=== PATIENT | male | born 1965 | race Caucasian/White ===

== ENCOUNTER 2021-09-09 01:05 | Inpatient (IN) | payer OTHER ==
[2021-09-09] MEDS ORDERED: HYDROcodone/Acetaminophen 5/325 mg Tablet PO PRN (01:25)
[2021-09-09] MEDS ORDERED: Acetaminophen 325 MG TAB PO PRN (01:25)
[2021-09-09] MEDS ORDERED: Zolpidem Tartrate 5 MG TAB PO PRN (01:25)
[2021-09-09] MEDS ORDERED: Guaifenesin DM 100-10/5 ML UDCUP PO PRN (01:25)
[2021-09-09] MEDS ORDERED: Ondansetron PF 4 MG/2 ML Vial IVP PRN (01:25)
[2021-09-09] MEDS ORDERED: Senokot S 8.6-50 MG TAB PO PRN (01:25)
[2021-09-09] MEDS ORDERED: Sodium Chloride 0.9% 1,000 ML IV SCH (01:30)
[2021-09-09] MEDS ORDERED: REMDESIVIR REQUEST IVPB PRN (01:34)
[2021-09-09] MEDS: guaiFENesin/Codeine Phosphate 100 mg/10 mg 5 ml UD Cup PO SCH ×4 (02:51→20:08)
[2021-09-09 05:07] LABS: ALT (SGPT) 31 U/L (8-55); AST (SGOT) 58 U/L (5-34); Albumin 3.9 g/dL (3.5-5.0); Alkaline Phosphatase 53 U/L (40-110); Anion Gap 16 mmol/L (10-20); BUN (Urea Nitrogen) 21 mg/dL (8.4-25.7); Bilirubin, Total 1.1 mg/dL (0.2-1.2); CRP (Inflammatory) 9.95 mg/dL (= or < 0.5); Calc. Creatinine Clearance 0 mL/min (70-130); Calcium 9.1 mg/dL (7.8-10.44); Carbon Dioxide 27 mmol/L (22-29); Chloride 98 mmol/L (98-107); Glucose 135 mg/dL (70-105); Potassium 3.9 mmol/L (3.5-5.1); Protein, Total 6.9 g/dL (6.0-8.3); Sodium 137 mmol/L (136-145)
[2021-09-09 05:36] LABS: #Monocytes 0.3 10x3/uL (0.0-1.1); #Neutrophils 4.2 10x3/uL (1.5-8.4); %Basophils 0.2 % (0.0-2.0); %Monocytes 5.8 % (0.0-10.0); Hemoglobin 14.5 g/dL (13.5-17.5); Mean Corpuscular HGB CONC 35.1 g/dL (32.0-36.0); Mean Corpuscular Hemoglobin 31.3 pg (27.0-33.0); Mean Corpuscular Volume 89.2 fl (81.2-95.1); Mean Platelet Volume 10.6 fl (7.4-10.4); Platelet Count 138 10x3/uL (150-450); RBC Distribution Width 12.2 % (11.5-14.5); Red Blood Cell (RBC) Count 4.63 10x6/uL (4.32-5.72); White Blood Cell (WBC) Count 5.2 10x3/uL (3.5-10.5)
[2021-09-09] MEDS: Ascorbic Acid 500 mg Chewable Tablet PO SCH (08:16)
[2021-09-09] MEDS: Zinc Gluconate 50 MG TAB PO SCH (08:16)
[2021-09-09] MEDS: Benzonatate 100 MG CAP PO SCH ×3 (08:16→20:08)
[2021-09-09] MEDS: Enoxaparin Sodium 40 MG/0.4 ML SYRINGE SC SCH (08:17)
[2021-09-09] MEDS: Ezetimibe 10 MG TAB PO SCH (08:17)
[2021-09-09] MEDS: Cholecalciferol 1,000 UNITS (25 MCG) TAB PO SCH (08:17)
[2021-09-09] MEDS ORDERED: Aspirin 81 mg Enteric Coated Tablet PO SCH (09:00)
[2021-09-09] MEDS ORDERED: REMDESIVIR 200 MG in Sodium Chloride 0.9% 250 ML 210 ML IV SCH (09:00)
[2021-09-09] MEDS ORDERED: Benzonatate 100 MG CAP PO PRN (10:26)
[2021-09-09] MEDS: traZODone HCl 50 MG TAB PO PRN (20:08)
[2021-09-09] MEDS: Dexamethasone 4 mg/ml Vial SLOW IVP SCH (20:08)
[2021-09-09] MEDS: Calcium Carbonate 500 MG ChewTAB PO PRN (20:08)
[2021-09-09] MEDS: Atorvastatin Calcium 20 MG TAB PO SCH (20:08)
[2021-09-09 20:32] LABS: Bilirubin Neg (Negative); Blood, Urine 25 (Negative); Clarity Clear (Clear); Glucose, Urine (Dipstick) Normal (Negative); Ketone, Urine Negative (Negative); Leukocyte Negative (Negative); Nitrite Negative (Negative); Protein, Urine (Dipstick) 100 mg/dl (Neg-Trace)
[2021-09-09 20:40] LABS: Bacteria/HPF Rare-Few HPF (None Seen); Mucous/LPF 1+ LPF (<2+); RBC/HPF 0-3 HPF (0-3); Squamous Epithelial 0-3 HPF (0-3); WBC/HPF 0-3 HPF (0-3)
[2021-09-10] MEDS: guaiFENesin/Codeine Phosphate 100 mg/10 mg 5 ml UD Cup PO SCH (02:22)
[2021-09-10 04:59] LABS: #Monocytes 0.5 10x3/uL (0.0-1.1); #Neutrophils 5.6 10x3/uL (1.5-8.4); %Basophils 0.1 % (0.0-2.0); %Monocytes 7.1 % (0.0-10.0); Hemoglobin 13.5 g/dL (13.5-17.5); Mean Corpuscular HGB CONC 34.1 g/dL (32.0-36.0); Mean Platelet Volume 10.6 fl (7.4-10.4); Platelet Count 176 10x3/uL (150-450); RBC Distribution Width 11.9 % (11.5-14.5); Red Blood Cell (RBC) Count 4.35 10x6/uL (4.32-5.72); White Blood Cell (WBC) Count 7.2 10x3/uL (3.5-10.5)
[2021-09-10 05:16] LABS: ALT (SGPT) 37 U/L (8-55); AST (SGOT) 72 U/L (5-34); Albumin 3.6 g/dL (3.5-5.0); Alkaline Phosphatase 52 U/L (40-110); Anion Gap 14 mmol/L (10-20); BUN (Urea Nitrogen) 22 mg/dL (8.4-25.7); Bilirubin, Total 0.9 mg/dL (0.2-1.2); Calc. Creatinine Clearance 0 mL/min (70-130); Calcium 9.1 mg/dL (7.8-10.44); Carbon Dioxide 29 mmol/L (22-29); Chloride 101 mmol/L (98-107); Globulin 2.8 g/dL (2.4-3.5); Glucose 174 mg/dL (70-105); Phosphorus 4.6 mg/dL (2.3-4.7); Potassium 4.5 mmol/L (3.5-5.1); Protein, Total 6.4 g/dL (6.0-8.3); Sodium 139 mmol/L (136-145)
[2021-09-10] MEDS: Ezetimibe 10 MG TAB PO SCH (08:09)
[2021-09-10] MEDS: Cholecalciferol 1,000 UNITS (25 MCG) TAB PO SCH (08:10)
[2021-09-10] MEDS: Ascorbic Acid 500 mg Chewable Tablet PO SCH (08:10)
[2021-09-10] MEDS: Enoxaparin Sodium 40 MG/0.4 ML SYRINGE SC SCH (08:10)
[2021-09-10] MEDS: Zinc Gluconate 50 MG TAB PO SCH (08:10)
[2021-09-10] MEDS: Calcium Carbonate 500 MG ChewTAB PO PRN ×3 (08:10→21:36)
[2021-09-10] MEDS: Benzonatate 100 MG CAP PO SCH ×3 (08:10→20:26)
[2021-09-10] MEDS: REMDESIVIR 100 MG in Sodium Chloride 0.9% 250 ML 230 ML IV SCH (08:10)
[2021-09-10] MEDS: guaiFENesin/Codeine Phosphate 100 mg/10 mg 5 ml UD Cup PO PRN ×3 (08:11→21:37)
[2021-09-10] MEDS: Atorvastatin Calcium 20 MG TAB PO SCH (20:25)
[2021-09-10] MEDS: Dexamethasone 4 mg/ml Vial SLOW IVP SCH (20:26)
[2021-09-10] MEDS: traZODone HCl 50 MG TAB PO PRN (21:36)
[2021-09-11 04:39] LABS: #Monocytes 0.7 10x3/uL (0.0-1.1); #Neutrophils 7.1 10x3/uL (1.5-8.4); %Basophils 0.1 % (0.0-2.0); %Monocytes 7.9 % (0.0-10.0); %Neutrophils 77.9 % (40.0-75.0); Hemoglobin 13.5 g/dL (13.5-17.5); Mean Corpuscular HGB CONC 33.8 g/dL (32.0-36.0); Mean Corpuscular Hemoglobin 30.8 pg (27.0-33.0); Mean Corpuscular Volume 91.1 fl (81.2-95.1); Mean Platelet Volume 10.4 fl (7.4-10.4); Platelet Count 212 10x3/uL (150-450); RBC Distribution Width 12.1 % (11.5-14.5); Red Blood Cell (RBC) Count 4.39 10x6/uL (4.32-5.72); White Blood Cell (WBC) Count 9.2 10x3/uL (3.5-10.5)
[2021-09-11 04:56] LABS: ALT (SGPT) 45 U/L (8-55); AST (SGOT) 68 U/L (5-34); Albumin 3.4 g/dL (3.5-5.0); Alkaline Phosphatase 57 U/L (40-110); Anion Gap 14 mmol/L (10-20); BUN (Urea Nitrogen) 23 mg/dL (8.4-25.7); Bilirubin, Total 0.7 mg/dL (0.2-1.2); Calc. Creatinine Clearance 0 mL/min (70-130); Carbon Dioxide 30 mmol/L (22-29); Chloride 101 mmol/L (98-107); Globulin 2.9 g/dL (2.4-3.5); Glucose 149 mg/dL (70-105); Potassium 4.9 mmol/L (3.5-5.1); Protein, Total 6.3 g/dL (6.0-8.3); Sodium 140 mmol/L (136-145)
[2021-09-11] MEDS: Ezetimibe 10 MG TAB PO SCH (10:51)
[2021-09-11] MEDS: Cholecalciferol 1,000 UNITS (25 MCG) TAB PO SCH (10:51)
[2021-09-11] MEDS: Benzonatate 100 MG CAP PO SCH ×3 (10:51→21:22)
[2021-09-11] MEDS: Ascorbic Acid 500 mg Chewable Tablet PO SCH (10:51)
[2021-09-11] MEDS: Enoxaparin Sodium 40 MG/0.4 ML SYRINGE SC SCH (10:52)
[2021-09-11] MEDS: REMDESIVIR 100 MG in Sodium Chloride 0.9% 250 ML 230 ML IV SCH (10:52)
[2021-09-11] MEDS: Zinc Gluconate 50 MG TAB PO SCH (10:53)
[2021-09-11] MEDS: Calcium Carbonate 500 MG ChewTAB PO PRN ×2 (11:10→21:22)
[2021-09-11] MEDS: guaiFENesin/Codeine Phosphate 100 mg/10 mg 5 ml UD Cup PO PRN ×2 (11:11→21:23)
[2021-09-11] MEDS ORDERED: Fluticasone Propionate Nasal Spray 16 gm Bottle NASAL SCH (18:45)
[2021-09-11] MEDS: Dexamethasone 4 mg/ml Vial SLOW IVP SCH (21:22)
[2021-09-11] MEDS: Atorvastatin Calcium 20 MG TAB PO SCH (21:22)
[2021-09-11] MEDS: traZODone HCl 50 MG TAB PO PRN (21:22)
[2021-09-11] MEDS: guaiFENesin ER 600 MG TAB PO SCH (21:22)
[2021-09-12] MEDS ORDERED: Sodium Chloride 0.9% 250 ML 250 ML ONE (08:31)
[2021-09-12] MEDS: Enoxaparin Sodium 40 MG/0.4 ML SYRINGE SC SCH (08:51)
[2021-09-12] MEDS: guaiFENesin ER 600 MG TAB PO SCH ×2 (08:51→20:47)
[2021-09-12] MEDS: Benzonatate 100 MG CAP PO SCH ×3 (08:51→20:46)
[2021-09-12] MEDS: Cholecalciferol 1,000 UNITS (25 MCG) TAB PO SCH (08:52)
[2021-09-12] MEDS: Zinc Gluconate 50 MG TAB PO SCH (08:52)
[2021-09-12] MEDS: Ezetimibe 10 MG TAB PO SCH (08:52)
[2021-09-12] MEDS: Ascorbic Acid 500 mg Chewable Tablet PO SCH (08:52)
[2021-09-12] MEDS: REMDESIVIR 100 MG in Sodium Chloride 0.9% 250 ML 230 ML IV SCH (08:53)
[2021-09-12] MEDS ORDERED: Polyethylene Glycol 3350 17 GM Packet PO SCH (12:00)
[2021-09-12 13:15] LABS: Hemoglobin A1c 5.4 % (4.0-6.0)
[2021-09-12] MEDS: Fluticasone Propionate Nasal Spray 16 gm Bottle NASAL SCH (14:05)
[2021-09-12] MEDS: Atorvastatin Calcium 20 MG TAB PO SCH (20:46)
[2021-09-12] MEDS: traZODone HCl 50 MG TAB PO PRN (20:47)
[2021-09-12] MEDS: Calcium Carbonate 500 MG ChewTAB PO PRN (20:47)
[2021-09-12] MEDS: Dexamethasone 4 mg/ml Vial SLOW IVP SCH (20:47)
[2021-09-12] MEDS: Senokot S 8.6-50 MG TAB PO SCH (20:47)
[2021-09-12] MEDS: guaiFENesin/Codeine Phosphate 100 mg/10 mg 5 ml UD Cup PO PRN (20:50)
[2021-09-13 04:44] LABS: Anion Gap 13 mmol/L (10-20); BUN (Urea Nitrogen) 18 mg/dL (8.4-25.7); Calc. Creatinine Clearance 0 mL/min (70-130); Carbon Dioxide 31 mmol/L (22-29); Chloride 101 mmol/L (98-107); Glucose 174 mg/dL (70-105); Magnesium 2.1 mg/dL (1.6-2.6); Phosphorus 3.8 mg/dL (2.3-4.7); Potassium 4.7 mmol/L (3.5-5.1); Sodium 140 mmol/L (136-145)
[2021-09-13 05:07] LABS: #Monocytes 0.5 10x3/uL (0.0-1.1); #Neutrophils 8.1 10x3/uL (1.5-8.4); %Basophils 0.4 % (0.0-2.0); %Lymphocytes 10.2 % (18.0-47.0); %Monocytes 5.4 % (0.0-10.0); %Neutrophils 81.5 % (40.0-75.0); Hemoglobin 13.6 g/dL (13.5-17.5); Mean Corpuscular HGB CONC 34.2 g/dL (32.0-36.0); Mean Corpuscular Hemoglobin 31.3 pg (27.0-33.0); Mean Corpuscular Volume 91.7 fl (81.2-95.1); Mean Platelet Volume 9.9 fl (7.4-10.4); Platelet Count 248 10x3/uL (150-450); RBC Distribution Width 12.2 % (11.5-14.5); Red Blood Cell (RBC) Count 4.34 10x6/uL (4.32-5.72)
[2021-09-13] MEDS: Cholecalciferol 1,000 UNITS (25 MCG) TAB PO SCH (08:29)
[2021-09-13] MEDS: guaiFENesin ER 600 MG TAB PO SCH ×2 (08:29→20:09)
[2021-09-13] MEDS: Polyethylene Glycol 3350 17 GM Packet PO SCH (08:29)
[2021-09-13] MEDS: Ezetimibe 10 MG TAB PO SCH (08:29)
[2021-09-13] MEDS: Ascorbic Acid 500 mg Chewable Tablet PO SCH (08:29)
[2021-09-13] MEDS: Senokot S 8.6-50 MG TAB PO SCH ×2 (08:29→20:24)
[2021-09-13] MEDS: Dexamethasone 4 mg/ml Vial SLOW IVP SCH ×2 (08:29→20:09)
[2021-09-13] MEDS: Benzonatate 100 MG CAP PO SCH ×3 (08:29→20:09)
[2021-09-13] MEDS: Zinc Gluconate 50 MG TAB PO SCH (08:30)
[2021-09-13] MEDS: REMDESIVIR 100 MG in Sodium Chloride 0.9% 250 ML 230 ML IV SCH (08:30)
[2021-09-13] MEDS: Fluticasone Propionate Nasal Spray 16 gm Bottle NASAL SCH (08:30)
[2021-09-13] MEDS: Enoxaparin Sodium 40 MG/0.4 ML SYRINGE SC SCH (08:30)
[2021-09-13] MEDS: Atorvastatin Calcium 20 MG TAB PO SCH (20:09)
[2021-09-13] MEDS: traZODone HCl 50 MG TAB PO PRN (20:23)
[2021-09-14] MEDS: Enoxaparin Sodium 40 MG/0.4 ML SYRINGE SC SCH (07:45)
[2021-09-14] MEDS: Polyethylene Glycol 3350 17 GM Packet PO SCH (07:45)
[2021-09-14] MEDS: guaiFENesin ER 600 MG TAB PO SCH ×2 (07:45→20:33)
[2021-09-14] MEDS: Ezetimibe 10 MG TAB PO SCH (07:45)
[2021-09-14] MEDS: Benzonatate 100 MG CAP PO SCH ×3 (07:45→20:34)
[2021-09-14] MEDS: Dexamethasone 4 mg/ml Vial SLOW IVP SCH ×2 (07:45→20:34)
[2021-09-14] MEDS: Cholecalciferol 1,000 UNITS (25 MCG) TAB PO SCH (07:46)
[2021-09-14] MEDS: Fluticasone Propionate Nasal Spray 16 gm Bottle NASAL SCH (07:46)
[2021-09-14] MEDS: Zinc Gluconate 50 MG TAB PO SCH (07:46)
[2021-09-14] MEDS: Senokot S 8.6-50 MG TAB PO SCH ×2 (07:46→20:32)
[2021-09-14] MEDS: Ascorbic Acid 500 mg Chewable Tablet PO SCH (07:46)
[2021-09-14] MEDS: Ventolin HFA Inhaler 60 PUFF INHALER INH SCH ×3 (15:23→20:34)
[2021-09-14] MEDS: Calcium Carbonate 500 MG ChewTAB PO PRN (20:32)
[2021-09-14] MEDS: Atorvastatin Calcium 20 MG TAB PO SCH (20:33)
[2021-09-14] MEDS: traZODone HCl 50 MG TAB PO PRN (20:33)
[2021-09-14] MEDS: Mometasone 100 MCG/PUFF (1 INHALER) INH SCH (20:33)
[2021-09-15 06:27] LABS: Hemoglobin 14.2 g/dL (13.5-17.5); Mean Corpuscular HGB CONC 34.7 g/dL (32.0-36.0); Mean Corpuscular Hemoglobin 31.5 pg (27.0-33.0); Mean Corpuscular Volume 90.7 fl (81.2-95.1); Mean Platelet Volume 9.7 fl (7.4-10.4); Platelet Count 380 10x3/uL (150-450); RBC Distribution Width 12.4 % (11.5-14.5); Red Blood Cell (RBC) Count 4.51 10x6/uL (4.32-5.72); White Blood Cell (WBC) Count 14.5 10x3/uL (3.5-10.5)
[2021-09-15 06:46] LABS: Anion Gap 14 mmol/L (10-20); BUN (Urea Nitrogen) 21 mg/dL (8.4-25.7); Calc. Creatinine Clearance 141 mL/min (70-130); Calcium 9.2 mg/dL (7.8-10.44); Carbon Dioxide 28 mmol/L (22-29); Chloride 102 mmol/L (98-107); Glucose 222 mg/dL (70-105); Magnesium 2.1 mg/dL (1.6-2.6); Phosphorus 3.9 mg/dL (2.3-4.7); Potassium 4.5 mmol/L (3.5-5.1); Sodium 139 mmol/L (136-145)
[2021-09-15 07:00] LABS: MDiff Complete? YES
[2021-09-15 07:02] LABS: Band 2 % (5-11); Lymphocytes 8 % (21-51); Metamyelocyte 1 % (0-0); Monocytes 5 % (0-10); Myelocyte 2 % (0-0); Neutrophil 80 % (42-75); Reactive Lymphocytes 2 % (0-10)
[2021-09-15 07:04] LABS: Platelet Morphology Comment Appears Adequate; RBC Morphology Normal
[2021-09-15] MEDS: Mometasone 100 MCG/PUFF (1 INHALER) INH SCH ×2 (07:20→20:32)
[2021-09-15] MEDS: Ventolin HFA Inhaler 60 PUFF INHALER INH SCH ×4 (07:20→20:32)
[2021-09-15] MEDS: Ascorbic Acid 500 mg Chewable Tablet PO SCH (08:16)
[2021-09-15] MEDS: Cholecalciferol 1,000 UNITS (25 MCG) TAB PO SCH (08:17)
[2021-09-15] MEDS: Zinc Gluconate 50 MG TAB PO SCH (08:17)
[2021-09-15] MEDS: Enoxaparin Sodium 40 MG/0.4 ML SYRINGE SC SCH (08:17)
[2021-09-15] MEDS: Ezetimibe 10 MG TAB PO SCH (08:17)
[2021-09-15] MEDS: guaiFENesin ER 600 MG TAB PO SCH ×2 (08:17→20:46)
[2021-09-15] MEDS: Dexamethasone 4 mg/ml Vial SLOW IVP SCH ×2 (08:18→20:44)
[2021-09-15] MEDS: Polyethylene Glycol 3350 17 GM Packet PO SCH (08:20)
[2021-09-15] MEDS: Benzonatate 100 MG CAP PO SCH ×3 (08:20→20:46)
[2021-09-15] MEDS: Fluticasone Propionate Nasal Spray 16 gm Bottle NASAL SCH (08:20)
[2021-09-15] MEDS: Senokot S 8.6-50 MG TAB PO SCH ×2 (08:40→21:17)
[2021-09-15] MEDS ORDERED: Dextrose 5% in Water 1,000 ML IV PRN (08:49)
[2021-09-15] MEDS ORDERED: Dextrose 50% Abboject 50 ML SYRINGE SLOW IVP PRN (08:49)
[2021-09-15] MEDS: HumaLOG 300 UNITS/3 ML VIAL SC PRN ×3 (12:50→22:48)
[2021-09-15] MEDS: Atorvastatin Calcium 20 MG TAB PO SCH (20:46)
[2021-09-15] MEDS: traZODone HCl 50 MG TAB PO PRN (20:46)
[2021-09-16 04:47] LABS: Hemoglobin 14.1 g/dL (13.5-17.5); Mean Corpuscular HGB CONC 33.4 g/dL (32.0-36.0); Mean Corpuscular Hemoglobin 30.9 pg (27.0-33.0); Mean Corpuscular Volume 92.5 fl (81.2-95.1); Mean Platelet Volume 9.7 fl (7.4-10.4); Platelet Count 422 10x3/uL (150-450); RBC Distribution Width 12.4 % (11.5-14.5); Red Blood Cell (RBC) Count 4.56 10x6/uL (4.32-5.72); White Blood Cell (WBC) Count 16.7 10x3/uL (3.5-10.5)
[2021-09-16 05:09] LABS: Anion Gap 13 mmol/L (10-20); BUN (Urea Nitrogen) 21 mg/dL (8.4-25.7); Calc. Creatinine Clearance 148 mL/min (70-130); Calcium 9.1 mg/dL (7.8-10.44); Carbon Dioxide 27 mmol/L (22-29); Chloride 102 mmol/L (98-107); Glucose 194 mg/dL (70-105); Magnesium 2.1 mg/dL (1.6-2.6); Phosphorus 4.1 mg/dL (2.3-4.7); Potassium 4.5 mmol/L (3.5-5.1); Sodium 137 mmol/L (136-145)
[2021-09-16 06:18] LABS: MDiff Complete? YES
[2021-09-16 06:19] LABS: Platelet Morphology Comment Appears Adequate; Polychromasia SLIGHT = 2-3 cells (100X) (0-2/hpf)
[2021-09-16 06:22] LABS: Band 3 % (5-11); Lymphocytes 7 % (21-51); Monocytes 7 % (0-10); Neutrophil 83 % (42-75)
[2021-09-16] MEDS: Mometasone 100 MCG/PUFF (1 INHALER) INH SCH ×2 (07:00→21:00)
[2021-09-16] MEDS: Ventolin HFA Inhaler 60 PUFF INHALER INH SCH ×4 (07:01→21:00)
[2021-09-16] MEDS: Ascorbic Acid 500 mg Chewable Tablet PO SCH (07:49)
[2021-09-16] MEDS: guaiFENesin ER 600 MG TAB PO SCH ×2 (07:49→21:38)
[2021-09-16] MEDS: Senokot S 8.6-50 MG TAB PO SCH ×2 (07:49→21:46)
[2021-09-16] MEDS: Benzonatate 100 MG CAP PO SCH ×3 (07:49→21:38)
[2021-09-16] MEDS: Zinc Gluconate 50 MG TAB PO SCH (07:49)
[2021-09-16] MEDS: Enoxaparin Sodium 40 MG/0.4 ML SYRINGE SC SCH (07:49)
[2021-09-16] MEDS: Fluticasone Propionate Nasal Spray 16 gm Bottle NASAL SCH (07:49)
[2021-09-16] MEDS: Polyethylene Glycol 3350 17 GM Packet PO SCH (07:49)
[2021-09-16] MEDS: Ezetimibe 10 MG TAB PO SCH (07:50)
[2021-09-16] MEDS: Cholecalciferol 1,000 UNITS (25 MCG) TAB PO SCH (07:50)
[2021-09-16] MEDS: Dexamethasone 4 mg/ml Vial SLOW IVP SCH ×2 (07:50→21:38)
[2021-09-16] MEDS ORDERED: NPH, Human Insulin Isophane 300 UNIT/3 ML VIAL SC SCH (12:00)
[2021-09-16] MEDS: HumaLOG 300 UNITS/3 ML VIAL SC PRN ×2 (17:21→21:37)
[2021-09-16] MEDS: Atorvastatin Calcium 20 MG TAB PO SCH (21:38)
[2021-09-16] MEDS: Lantus 1000 UNITS/10 ML VIAL SC SCH (21:42)
[2021-09-16] MEDS: traZODone HCl 50 MG TAB PO PRN (21:48)
[2021-09-17 05:05] LABS: Anion Gap 14 mmol/L (10-20); BUN (Urea Nitrogen) 23 mg/dL (8.4-25.7); Calc. Creatinine Clearance 128 mL/min (70-130); Carbon Dioxide 27 mmol/L (22-29); Chloride 100 mmol/L (98-107); Glucose 183 mg/dL (70-105); Magnesium 2.1 mg/dL (1.6-2.6); Phosphorus 4.4 mg/dL (2.3-4.7); Potassium 4.7 mmol/L (3.5-5.1); Sodium 136 mmol/L (136-145)
[2021-09-17 05:15] LABS: Hemoglobin 14.1 g/dL (13.5-17.5); Mean Corpuscular HGB CONC 34.2 g/dL (32.0-36.0); Mean Corpuscular Hemoglobin 31.3 pg (27.0-33.0); Mean Corpuscular Volume 91.4 fl (81.2-95.1); Mean Platelet Volume 9.6 fl (7.4-10.4); Platelet Count 394 10x3/uL (150-450); RBC Distribution Width 12.6 % (11.5-14.5); Red Blood Cell (RBC) Count 4.51 10x6/uL (4.32-5.72)
[2021-09-17] MEDS: HumaLOG 300 UNITS/3 ML VIAL SC PRN ×3 (05:30→20:51)
[2021-09-17] MEDS ORDERED: Sodium Chloride 0.9% 1,000 ML IV SCH (06:00)
[2021-09-17 07:04] LABS: MDiff Complete? YES; Platelet Morphology Comment Appears Adequate; RBC Morphology Normal
[2021-09-17 07:06] LABS: Band 2 % (5-11); Lymphocytes 7 % (21-51); Monocytes 8 % (0-10); Neutrophil 83 % (42-75)
[2021-09-17] MEDS: Ventolin HFA Inhaler 60 PUFF INHALER INH SCH ×4 (08:20→19:39)
[2021-09-17] MEDS: Enoxaparin Sodium 40 MG/0.4 ML SYRINGE SC SCH (08:53)
[2021-09-17] MEDS: Ezetimibe 10 MG TAB PO SCH (08:54)
[2021-09-17] MEDS: Dexamethasone 4 mg/ml Vial SLOW IVP SCH ×2 (08:54→20:50)
[2021-09-17] MEDS: Ascorbic Acid 500 mg Chewable Tablet PO SCH (08:54)
[2021-09-17] MEDS: Aspirin Chewable 81 MG TAB PO SCH (08:54)
[2021-09-17] MEDS: Zinc Gluconate 50 MG TAB PO SCH (08:55)
[2021-09-17] MEDS: Benzonatate 100 MG CAP PO SCH ×3 (08:55→20:50)
[2021-09-17] MEDS: Fluticasone Propionate Nasal Spray 16 gm Bottle NASAL SCH (08:55)
[2021-09-17] MEDS: guaiFENesin ER 600 MG TAB PO SCH ×2 (08:55→20:49)
[2021-09-17] MEDS: Simvastatin 10 MG TAB PO SCH (08:55)
[2021-09-17] MEDS: Cholecalciferol 1,000 UNITS (25 MCG) TAB PO SCH (08:55)
[2021-09-17] MEDS: Senokot S 8.6-50 MG TAB PO SCH ×2 (09:18→20:49)
[2021-09-17] MEDS: Polyethylene Glycol 3350 17 GM Packet PO SCH (09:18)
[2021-09-17] MEDS: Mometasone 100 MCG/PUFF (1 INHALER) INH SCH ×2 (10:45→19:39)
[2021-09-17] MEDS: guaiFENesin/Codeine Phosphate 100 mg/10 mg 5 ml UD Cup PO PRN (17:35)
[2021-09-17] MEDS: traZODone HCl 50 MG TAB PO SCH (20:49)
[2021-09-17] MEDS: Atorvastatin Calcium 20 MG TAB PO SCH (20:49)
[2021-09-17] MEDS: Lantus 1000 UNITS/10 ML VIAL SC SCH (20:50)
[2021-09-17] MEDS ORDERED: Azithromycin 200 MG/5 ML Oral Suspension PO SCH (20:52)
[2021-09-17] MEDS: cefTRIAXone\\ROCEPHIN 2 GM in Sodium Chloride 0.9% 100 ML IVPB SCH (21:41)
[2021-09-17] MEDS: Azithromycin 250 MG TAB PO SCH (21:46)
[2021-09-18] MEDS: HumaLOG 300 UNITS/3 ML VIAL SC PRN ×4 (05:09→21:26)
[2021-09-18 05:18] LABS: Anion Gap 14 mmol/L (10-20); BUN (Urea Nitrogen) 22 mg/dL (8.4-25.7); Calc. Creatinine Clearance 137 mL/min (70-130); Calcium 8.9 mg/dL (7.8-10.44); Carbon Dioxide 27 mmol/L (22-29); Chloride 101 mmol/L (98-107); Glucose 195 mg/dL (70-105); Magnesium 2.1 mg/dL (1.6-2.6); Potassium 4.6 mmol/L (3.5-5.1); Sodium 137 mmol/L (136-145)
[2021-09-18 05:29] LABS: Hemoglobin 13.9 g/dL (13.5-17.5); Mean Corpuscular HGB CONC 33.9 g/dL (32.0-36.0); Mean Corpuscular Hemoglobin 31.4 pg (27.0-33.0); Mean Corpuscular Volume 92.6 fl (81.2-95.1); Mean Platelet Volume 9.7 fl (7.4-10.4); Platelet Count 416 10x3/uL (150-450); RBC Distribution Width 12.3 % (11.5-14.5); Red Blood Cell (RBC) Count 4.43 10x6/uL (4.32-5.72); White Blood Cell (WBC) Count 20.1 10x3/uL (3.5-10.5)
[2021-09-18 07:10] LABS: MDiff Complete? YES
[2021-09-18 07:11] LABS: Platelet Morphology Comment Appears Adequate; RBC Morphology Normal
[2021-09-18 07:15] LABS: Lymphocytes 9 % (21-51); Monocytes 5 % (0-10); Neutrophil 86 % (42-75)
[2021-09-18] MEDS: Mometasone 100 MCG/PUFF (1 INHALER) INH SCH ×2 (07:45→19:53)
[2021-09-18] MEDS: Ventolin HFA Inhaler 60 PUFF INHALER INH SCH ×4 (07:46→19:53)
[2021-09-18] MEDS: Polyethylene Glycol 3350 17 GM Packet PO SCH (10:12)
[2021-09-18] MEDS: Enoxaparin Sodium 40 MG/0.4 ML SYRINGE SC SCH (10:12)
[2021-09-18] MEDS: Ezetimibe 10 MG TAB PO SCH (10:13)
[2021-09-18] MEDS: Zinc Gluconate 50 MG TAB PO SCH (10:13)
[2021-09-18] MEDS: Ascorbic Acid 500 mg Chewable Tablet PO SCH (10:13)
[2021-09-18] MEDS: Cholecalciferol 1,000 UNITS (25 MCG) TAB PO SCH (10:13)
[2021-09-18] MEDS: Aspirin Chewable 81 MG TAB PO SCH (10:13)
[2021-09-18] MEDS: Benzonatate 100 MG CAP PO SCH ×3 (10:13→21:15)
[2021-09-18] MEDS: Simvastatin 10 MG TAB PO SCH (10:13)
[2021-09-18] MEDS: Dexamethasone 4 mg/ml Vial SLOW IVP SCH ×2 (10:14→21:15)
[2021-09-18] MEDS: guaiFENesin ER 600 MG TAB PO SCH ×2 (10:14→21:16)
[2021-09-18] MEDS: Fluticasone Propionate Nasal Spray 16 gm Bottle NASAL SCH (10:14)
[2021-09-18] MEDS: Senokot S 8.6-50 MG TAB PO SCH ×2 (10:14→21:15)
[2021-09-18] MEDS: guaiFENesin/Codeine Phosphate 100 mg/10 mg 5 ml UD Cup PO PRN (13:33)
[2021-09-18] MEDS: cefTRIAXone\\ROCEPHIN 2 GM in Sodium Chloride 0.9% 100 ML IVPB SCH (21:11)
[2021-09-18] MEDS: traZODone HCl 50 MG TAB PO SCH (21:14)
[2021-09-18] MEDS: Atorvastatin Calcium 20 MG TAB PO SCH (21:15)
[2021-09-18] MEDS: Azithromycin 250 MG TAB PO SCH (21:15)
[2021-09-18] MEDS: Lantus 1000 UNITS/10 ML VIAL SC SCH (21:16)
[2021-09-19 04:21] LABS: #Basophils 0.1 10x3/uL (0.0-0.2); #Monocytes 0.8 10x3/uL (0.0-1.1); #Neutrophils 14.8 10x3/uL (1.5-8.4); %Basophils 0.4 % (0.0-2.0); %Lymphocytes 5.6 % (18.0-47.0); %Monocytes 4.8 % (0.0-10.0); %Neutrophils 84.7 % (40.0-75.0); Hemoglobin 14.3 g/dL (13.5-17.5); Mean Corpuscular HGB CONC 34.6 g/dL (32.0-36.0); Mean Corpuscular Hemoglobin 31.7 pg (27.0-33.0); Mean Corpuscular Volume 91.6 fl (81.2-95.1); Mean Platelet Volume 9.6 fl (7.4-10.4); Platelet Count 354 10x3/uL (150-450); RBC Distribution Width 12.5 % (11.5-14.5); Red Blood Cell (RBC) Count 4.51 10x6/uL (4.32-5.72); White Blood Cell (WBC) Count 17.5 10x3/uL (3.5-10.5)
[2021-09-19 04:43] LABS: Anion Gap 14 mmol/L (10-20); BUN (Urea Nitrogen) 21 mg/dL (8.4-25.7); Calc. Creatinine Clearance 155 mL/min (70-130); Calcium 8.5 mg/dL (7.8-10.44); Carbon Dioxide 24 mmol/L (22-29); Chloride 102 mmol/L (98-107); Glucose 182 mg/dL (70-105); Magnesium 2.1 mg/dL (1.6-2.6); Phosphorus 3.6 mg/dL (2.3-4.7); Potassium 4.3 mmol/L (3.5-5.1); Sodium 136 mmol/L (136-145)
[2021-09-19] MEDS: Mometasone 100 MCG/PUFF (1 INHALER) INH SCH ×2 (06:50→19:17)
[2021-09-19] MEDS: Ventolin HFA Inhaler 60 PUFF INHALER INH SCH ×4 (06:51→19:17)
[2021-09-19] MEDS: guaiFENesin ER 600 MG TAB PO SCH ×2 (08:06→21:39)
[2021-09-19] MEDS: Senokot S 8.6-50 MG TAB PO SCH ×2 (08:06→21:39)
[2021-09-19] MEDS: Simvastatin 10 MG TAB PO SCH (08:06)
[2021-09-19] MEDS: Aspirin Chewable 81 MG TAB PO SCH (08:06)
[2021-09-19] MEDS: Ezetimibe 10 MG TAB PO SCH (08:06)
[2021-09-19] MEDS: Cholecalciferol 1,000 UNITS (25 MCG) TAB PO SCH (08:06)
[2021-09-19] MEDS: Benzonatate 100 MG CAP PO SCH ×3 (08:06→21:39)
[2021-09-19] MEDS: Ascorbic Acid 500 mg Chewable Tablet PO SCH (08:06)
[2021-09-19] MEDS: Polyethylene Glycol 3350 17 GM Packet PO SCH (08:07)
[2021-09-19] MEDS: Zinc Gluconate 50 MG TAB PO SCH (08:07)
[2021-09-19] MEDS: Enoxaparin Sodium 40 MG/0.4 ML SYRINGE SC SCH (08:07)
[2021-09-19] MEDS: Fluticasone Propionate Nasal Spray 16 gm Bottle NASAL SCH (08:07)
[2021-09-19] MEDS: Dexamethasone 4 mg/ml Vial SLOW IVP SCH ×2 (08:07→21:39)
[2021-09-19] MEDS: guaiFENesin/Codeine Phosphate 100 mg/10 mg 5 ml UD Cup PO PRN ×2 (09:44→16:34)
[2021-09-19] MEDS: traZODone HCl 50 MG TAB PO SCH (21:38)
[2021-09-19] MEDS: cefTRIAXone\\ROCEPHIN 2 GM in Sodium Chloride 0.9% 100 ML IVPB SCH (21:38)
[2021-09-19] MEDS: Azithromycin 250 MG TAB PO SCH (21:39)
[2021-09-19] MEDS: Lantus 1000 UNITS/10 ML VIAL SC SCH (21:39)
[2021-09-19] MEDS: Atorvastatin Calcium 20 MG TAB PO SCH (21:39)
[2021-09-19] MEDS: HumaLOG 300 UNITS/3 ML VIAL SC PRN (21:40)
[2021-09-20 06:08] LABS: #Basophils 0.1 10x3/uL (0.0-0.2); #Monocytes 0.7 10x3/uL (0.0-1.1); #Neutrophils 16.3 10x3/uL (1.5-8.4); %Basophils 0.3 % (0.0-2.0); %Lymphocytes 5.2 % (18.0-47.0); %Monocytes 3.6 % (0.0-10.0); %Neutrophils 87.8 % (40.0-75.0); Mean Corpuscular HGB CONC 33.7 g/dL (32.0-36.0); Mean Corpuscular Hemoglobin 31.7 pg (27.0-33.0); Mean Corpuscular Volume 94.3 fl (81.2-95.1); Mean Platelet Volume 9.7 fl (7.4-10.4); Platelet Count 361 10x3/uL (150-450); RBC Distribution Width 12.4 % (11.5-14.5); Red Blood Cell (RBC) Count 4.41 10x6/uL (4.32-5.72); White Blood Cell (WBC) Count 18.5 10x3/uL (3.5-10.5)
[2021-09-20 06:26] LABS: Anion Gap 13 mmol/L (10-20); BUN (Urea Nitrogen) 22 mg/dL (8.4-25.7); Calc. Creatinine Clearance 149 mL/min (70-130); Calcium 8.8 mg/dL (7.8-10.44); Carbon Dioxide 26 mmol/L (22-29); Chloride 102 mmol/L (98-107); Glucose 182 mg/dL (70-105); Magnesium 2.1 mg/dL (1.6-2.6); Phosphorus 3.7 mg/dL (2.3-4.7); Potassium 4.2 mmol/L (3.5-5.1); Sodium 137 mmol/L (136-145)
[2021-09-20] MEDS: Mometasone 100 MCG/PUFF (1 INHALER) INH SCH ×2 (07:07→20:14)
[2021-09-20] MEDS: Ventolin HFA Inhaler 60 PUFF INHALER INH SCH ×4 (07:08→20:15)
[2021-09-20] MEDS: Ascorbic Acid 500 mg Chewable Tablet PO SCH (10:05)
[2021-09-20] MEDS: Dexamethasone 4 mg/ml Vial SLOW IVP SCH (10:06)
[2021-09-20] MEDS: Aspirin Chewable 81 MG TAB PO SCH (10:06)
[2021-09-20] MEDS: Benzonatate 100 MG CAP PO SCH ×3 (10:06→20:20)
[2021-09-20] MEDS: Cholecalciferol 1,000 UNITS (25 MCG) TAB PO SCH (10:06)
[2021-09-20] MEDS: Enoxaparin Sodium 40 MG/0.4 ML SYRINGE SC SCH (10:06)
[2021-09-20] MEDS: guaiFENesin ER 600 MG TAB PO SCH ×2 (10:07→20:20)
[2021-09-20] MEDS: Polyethylene Glycol 3350 17 GM Packet PO SCH (10:07)
[2021-09-20] MEDS: Ezetimibe 10 MG TAB PO SCH (10:07)
[2021-09-20] MEDS: Zinc Gluconate 50 MG TAB PO SCH (10:08)
[2021-09-20] MEDS: Senokot S 8.6-50 MG TAB PO SCH ×2 (10:08→22:10)
[2021-09-20] MEDS: Simvastatin 10 MG TAB PO SCH (10:08)
[2021-09-20] MEDS: Fluticasone Propionate Nasal Spray 16 gm Bottle NASAL SCH (10:11)
[2021-09-20] MEDS: HumaLOG 300 UNITS/3 ML VIAL SC PRN ×3 (12:51→20:25)
[2021-09-20] MEDS: guaiFENesin/Codeine Phosphate 100 mg/10 mg 5 ml UD Cup PO PRN ×2 (15:36→22:07)
[2021-09-20] MEDS: Atorvastatin Calcium 20 MG TAB PO SCH (20:20)
[2021-09-20] MEDS: traZODone HCl 50 MG TAB PO SCH (20:21)
[2021-09-20] MEDS: Calcium Carbonate 500 MG ChewTAB PO PRN (20:21)
[2021-09-20] MEDS: Lantus 1000 UNITS/10 ML VIAL SC SCH (20:25)
[2021-09-20] MEDS: Azithromycin 250 MG TAB PO SCH (20:37)
[2021-09-21] MEDS: cefTRIAXone\\ROCEPHIN 2 GM in Sodium Chloride 0.9% 100 ML IVPB SCH (02:31)
[2021-09-21] MEDS: Dexamethasone 4 mg/ml Vial SLOW IVP SCH ×3 (02:32→09:16)
[2021-09-21] MEDS: HumaLOG 300 UNITS/3 ML VIAL SC PRN ×2 (06:17→12:39)
[2021-09-21 06:53] LABS: #Basophils 0.1 10x3/uL (0.0-0.2); #Monocytes 0.8 10x3/uL (0.0-1.1); #Neutrophils 11.9 10x3/uL (1.5-8.4); %Basophils 0.3 % (0.0-2.0); %Eosinophils 0.1 % (0.0-6.0); %Lymphocytes 13.5 % (18.0-47.0); %Monocytes 5.1 % (0.0-10.0); %Neutrophils 78.5 % (40.0-75.0); Hemoglobin 14.1 g/dL (13.5-17.5); Mean Corpuscular HGB CONC 34.7 g/dL (32.0-36.0); Mean Corpuscular Volume 92.1 fl (81.2-95.1); Mean Platelet Volume 9.5 fl (7.4-10.4); Platelet Count 305 10x3/uL (150-450); RBC Distribution Width 12.7 % (11.5-14.5); Red Blood Cell (RBC) Count 4.41 10x6/uL (4.32-5.72); White Blood Cell (WBC) Count 15.2 10x3/uL (3.5-10.5)
[2021-09-21 07:24] LABS: Anion Gap 11 mmol/L (10-20); BUN (Urea Nitrogen) 25 mg/dL (8.4-25.7); Calc. Creatinine Clearance 149 mL/min (70-130); Calcium 8.6 mg/dL (7.8-10.44); Carbon Dioxide 28 mmol/L (22-29); Chloride 102 mmol/L (98-107); Glucose 129 mg/dL (70-105); Phosphorus 3.7 mg/dL (2.3-4.7); Potassium 4.2 mmol/L (3.5-5.1); Sodium 137 mmol/L (136-145)
[2021-09-21] MEDS: Mometasone 100 MCG/PUFF (1 INHALER) INH SCH (08:12)
[2021-09-21] MEDS: Ventolin HFA Inhaler 60 PUFF INHALER INH SCH ×3 (08:12→14:54)
[2021-09-21] MEDS: Ascorbic Acid 500 mg Chewable Tablet PO SCH (09:07)
[2021-09-21] MEDS: Aspirin Chewable 81 MG TAB PO SCH (09:08)
[2021-09-21] MEDS: Benzonatate 100 MG CAP PO SCH (09:08)
[2021-09-21] MEDS: Cholecalciferol 1,000 UNITS (25 MCG) TAB PO SCH (09:08)
[2021-09-21] MEDS: Ezetimibe 10 MG TAB PO SCH (09:09)
[2021-09-21] MEDS: Enoxaparin Sodium 40 MG/0.4 ML SYRINGE SC SCH (09:09)
[2021-09-21] MEDS: guaiFENesin ER 600 MG TAB PO SCH (09:09)
[2021-09-21] MEDS: Fluticasone Propionate Nasal Spray 16 gm Bottle NASAL SCH (09:09)
[2021-09-21] MEDS: Polyethylene Glycol 3350 17 GM Packet PO SCH (09:10)
[2021-09-21] MEDS: Simvastatin 10 MG TAB PO SCH (09:10)
[2021-09-21] MEDS: Senokot S 8.6-50 MG TAB PO SCH (09:11)
[2021-09-21] MEDS: Zinc Gluconate 50 MG TAB PO SCH (09:11)
[2021-09-21] MEDS ORDERED: predniSONE 20 MG TAB PO SCH (10:00)
[2021-09-21 12:33] VITALS: BP 101/53; TEMP 98.1
== END 2021-09-21 17:00 | disposition home or self-care (01) | DRG 177 ==
LOC: CSHTELE 01:05
PROVIDERS: ADMIT Student in an Organized Health Care Education/Training Program; ATTEND Family Medicine
PROC: 8E0ZXY6 Isolation (ICD-10-PCS; principal; 2021-09-09)
PROC: XW033E5 Introduction of Remdesivir Anti-infective into Peripheral Vein, Percutaneous Approach, New Technology Group 5 (ICD-10-PCS; 2021-09-09)
DX: U07.1 COVID-19 (principal); J12.82 Pneumonia due to coronavirus disease 2019; J96.01 Acute respiratory failure with hypoxia; I50.32 Chronic diastolic (congestive) heart failure; D69.6 Thrombocytopenia, unspecified; G47.00 Insomnia, unspecified; E86.0 Dehydration; D75.1 Secondary polycythemia; E78.2 Mixed hyperlipidemia; R73.9 Hyperglycemia, unspecified; T38.0X5A Adverse effect of glucocorticoids and synthetic analogues, initial encounter; Z80.1 Family history of malignant neoplasm of trachea, bronchus and lung; Z87.891 Personal history of nicotine dependence
CPT/HCPCS: 36415; 36416; 71045; 71275; 80048; 80053; 81001; 83036; 83735; 84100; 84145; 85025; 85379; 86140; 93306; 93970; 94760; 94799; J0248; J0696; J1100; J1650; J1815; J3490; J7050; J7512